=== PATIENT | female | born 1965 | race Caucasian/White ===

== ENCOUNTER 2018-03-07 13:57 | Outpatient (CLI) | payer BC | END 2018-03-07 13:58 | disposition home or self-care (01) | LOC: BICRAD 13:57 | PROVIDERS: ATTEND Chiropractor | DX: M41.9 Scoliosis, unspecified (principal); M47.892 Other spondylosis, cervical region; M40.202 Unspecified kyphosis, cervical region; Z98.1 Arthrodesis status | CPT/HCPCS: 72040; 72072; 72100 ==